=== PATIENT | male | born 1950 | race Native Hawaiian/Other Pacific Islander ===

== ENCOUNTER 2023-04-27 16:55 | Emergency (ER) | payer OTHER ==
[~2023-04-27] VITALS: Ht 170.2 cm; Wt 78.9 kg
[2023-04-27 16:55] VITALS: BP 113/57; TEMP 98.1
[2023-04-27 17:33] LABS: PLATELET COUNT 183 K/uL (142-355)
[2023-04-27 17:35] LABS: POTASSIUM 3.6 mmol/L (3.6-5.2)
[2023-04-27] MEDS ORDERED: ASPI325T40 PO (20:44)
[2023-04-27] MEDS ORDERED: FINA5TAB2 PO (20:44)
[2023-04-27] MEDS ORDERED: LIPITOR10 MG PO (20:44)
[2023-04-27] MEDS ORDERED: KP FOLIC ACID1 MG PO (20:45)
[2023-04-27] MEDS ORDERED: MEGAKRILL PO (20:45)
[2023-04-27] MEDS ORDERED: LEVE5MLUD PO (20:46)
[2023-04-27] MEDS ORDERED: [UNRECOGNIZED DRUG - REMARK] (20:56)
[2023-04-28] MEDS ORDERED: VITAMIN D325 MCG PO (12:02)
[2023-04-28] MEDS ORDERED: ZESTRIL40 MG PO (12:14)
[2023-04-28] MEDS ORDERED: NIACIN ER500 M1 PO (12:15)
[2023-04-28] MEDS ORDERED: QUET25TA2 PO ×2 (12:16)
[2023-04-28] MEDS ORDERED: QUETIAPINE25 MG PO (12:17)
[2023-04-28] MEDS ORDERED: SUPER B COM1 PO (12:18)
[2023-04-28] MEDS ORDERED: TRAZ50TA36 PO (12:19)
[2023-04-28] MEDS ORDERED: VENLAFAXINE150 M1 PO (12:19)
== END 2023-04-27 19:30 | disposition still patient (30) ==
LOC: ED 16:55
PROVIDERS: Family Medicine
DX: R45.6 Violent behavior (principal); F03.90 Unspecified dementia, unspecified severity, without behavioral disturbance, psychotic disturbance, mood disturbance, and anxiety; Z02.79 Encounter for issue of other medical certificate
CPT/HCPCS: 36415; 80053; 81000; 85027; 87635; 93005; 99283; U0003